=== PATIENT | female | born 1985 | race Caucasian/White ===

== ENCOUNTER 2020-04-24 16:13 | Emergency (ER) | payer OTHER ==
[~2020-04-24] VITALS: Ht 170.2 cm; Wt 73.0 kg
[2020-04-24 16:19] VITALS: BP 105/80
== END 2020-04-24 16:45 | disposition left against medical advice (07) ==
LOC: ER 16:13
DX: Z53.21 Procedure and treatment not carried out due to patient leaving prior to being seen by health care provider (principal)

== ENCOUNTER 2022-08-09 08:18 | Emergency (ER) | payer OTHER ==
[~2022-08-09] VITALS: Ht 167.6 cm; Wt 82.0 kg
[2022-08-09 08:21] VITALS: BP 128/78
[2022-08-09] MEDS ORDERED: TOPUD PO (08:52)
[2022-08-09] MEDS ORDERED: ACETAMINOPHEN 325MG TABLET PO ONE (09:00)
== END 2022-08-09 09:55 | disposition home or self-care (01) ==
LOC: ER 08:18
DX: H92.03 Otalgia, bilateral (principal); F15.10 Other stimulant abuse, uncomplicated; F12.10 Cannabis abuse, uncomplicated
CPT/HCPCS: 99283